=== PATIENT | male | born 1990 | race Two or more races ===

== ENCOUNTER 2020-02-27 22:22 | Inpatient (IN) | payer OTHER ==
[~2020-02-27] VITALS: Ht 175.3 cm; Wt 71.0 kg
[2020-02-27] MEDS ORDERED: INSU100I51 SC (22:39)
[2020-02-27] MEDS ORDERED: INSU100I13 SC (22:39)
--- NOTE | 2020-02-27 22:49 | NUR ---
PT TRANSFERRED FROM [place]. PT HAS CRUCH INJURY TO LEFT ARM. ARM IS SPLINTED. VSS. PT IS A TYPE 1 DIABETIC. 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 PT MEDICATED WITH 8 MG ZOFRAN AND 100 MCG FENTYNAL ASSOCIATE ENGINEER. PT RESTING. LAB AT BEDSIDE. PT GIVEN WATER UPON REQUEST. OK PER . CALL LIGHT IN REACH
[2020-02-27 23:03] LABS: BASOPHILS # (AUTO) 0.04 x10^3/uL (0-0.1); BASOPHILS % (AUTO) 0 % (0-1); EOSINOPHILS # (AUTO) 0.03 x10^3/uL (0-0.4); EOSINOPHILS % (AUTO) 0 % (1-7); LYMPHOCYTES # (AUTO) 1.07 x10^3/uL (1-3.4); LYMPHOCYTES % (AUTO) 9 % (22-44); MD NO; MEAN CORPUSCULAR HEMOGLOBIN 29.4 pg (27.5-34.5); MEAN CORPUSCULAR HGB CONC 33.4 g/dL (33.2-36.2); MONOCYTES # (AUTO) 0.52 x10^3/uL (0.2-0.8); MONOCYTES % (AUTO) 4 % (2-9); NEUTROPHILS # (AUTO) 10.05 x10^3/uL (1.8-6.8); NEUTROPHILS % (AUTO) 86 % (42-75); PLATELET COUNT 211 x10^3/uL (130-400); RED BLOOD COUNT 4.36 x10^6/uL (4.38-5.82)
[2020-02-27 23:15] LABS: ALBUMIN 3.5 g/dL (3.4-5.0); ANION GAP 14 mmol/L (5-15); CHLORIDE 103 mmol/L (98-107)
[2020-02-27] MEDS ORDERED: ONDANSETRON 2MG/ML, 2ML IVPush PRN (23:30)
[2020-02-27] MEDS ORDERED: HYDROmorphone 1 MG/ML, 1ML INJ IVPush PRN (23:30)
[2020-02-28 00:35] VITALS: BP 138/80
[2020-02-28] MEDS ORDERED: LACTATED RINGERS 1,000 ML IV SCH (01:00)
[2020-02-28] MEDS ORDERED: ACETAMINOPHEN 325 MG TABLET PO PRN ×2 (01:00→10:30)
[2020-02-28] MEDS ORDERED: DEXTROSE 50%, 50ML SYRINGE IVPush PRN (01:00)
[2020-02-28] MEDS ORDERED: GLUCAGON 1 MG IM PRN (01:00)
[2020-02-28] MEDS ORDERED: DEXTROSE 4 GM TAB.CHEW PO PRN (01:00)
[2020-02-28] MEDS ORDERED: TRAZODONE 50MG TABLET PO PRN (01:00)
[2020-02-28] MEDS ORDERED: ONDANSETRON 2MG/ML, 2ML IVPush PRN (01:00)
[2020-02-28] MEDS ORDERED: ENALAPRILAT 1.25 MG/ML, 2ML IVPush PRN (01:00)
[2020-02-28] MEDS ORDERED: INSULIN LISPRO 100 UNITS/ML, PEN SQ-INSULIN SCH (01:00)
[2020-02-28] MEDS ORDERED: morphine SULFATE 10 MG/ML, 1ML IVPush PRN (01:00)
[2020-02-28] MEDS: INSULIN GLARGINE 100 UNITS/ML, PEN SQ-INSULIN SCH ×2 (01:34→20:31)
[2020-02-28 01:55] LABS: MICROSCOPIC AUTO
[2020-02-28 02:09] LABS: CULTURE INDICATED? NO
[2020-02-28] MEDS ORDERED: INSULIN LISPRO 100 UNITS/ML, PEN SQ-INSULIN ONE (03:00)
[2020-02-28 05:11] LABS: ANION GAP 10 mmol/L (5-15); CALCIUM 9.3 mg/dL (8.5-10.1); CHLORIDE 107 mmol/L (98-107)
[2020-02-28 05:12] LABS: BASOPHILS # (AUTO) 0.04 x10^3/uL (0-0.1); BASOPHILS % (AUTO) 0 % (0-1); EOSINOPHILS % (AUTO) 0 % (1-7); LYMPHOCYTES # (AUTO) 1.21 x10^3/uL (1-3.4); LYMPHOCYTES % (AUTO) 13 % (22-44); MD NO; MEAN CORPUSCULAR HEMOGLOBIN 29.9 pg (27.5-34.5); MEAN CORPUSCULAR VOLUME 87.9 fL (81-97); MEAN PLATELET VOLUME 9.9 fL (7.4-10.4); MONOCYTES # (AUTO) 0.37 x10^3/uL (0.2-0.8); MONOCYTES % (AUTO) 4 % (2-9); NEUTROPHILS # (AUTO) 7.87 x10^3/uL (1.8-6.8); NEUTROPHILS % (AUTO) 83 % (42-75); PLATELET COUNT 218 x10^3/uL (130-400); RED BLOOD COUNT 4.25 x10^6/uL (4.38-5.82); RED CELL DISTRIBUTION WIDTH 12.6 % (9.4-14.8)
[2020-02-28 05:14] LABS: CREATININE 1.69 mg/dL (0.7-1.3)
[2020-02-28 06:04] LABS: ACETONE, SERUM Large (80mg/dL) (Negative)
[2020-02-28] MEDS: INSULIN LISPRO 100 UNITS/ML, PEN SQ-INSULIN SCH ×4 (07:49→20:31)
[2020-02-28] MEDS: SENNA/DOCUSATE TABLET PO SCH (07:49)
[2020-02-28] MEDS: SODIUM CHLORIDE FLUSH 10ML SYR IVF SCH ×2 (07:50→21:00)
[2020-02-28] MEDS: LACTATED RINGERS 1,000 ML IV SCH (07:57)
[2020-02-28 08:00] VITALS: BP 143/88
[2020-02-28] MEDS ORDERED: CHLORHEXIDINE 15 ML UDC MM STA (08:24)
[2020-02-28] MEDS ORDERED: MIDAZOLAM 1 MG/ML, 2ML ONE (09:00)
[2020-02-28] MEDS ORDERED: FENTANYL PF 250 MCG/5ML ONE (09:01)
[2020-02-28] MEDS ORDERED: SUCCINYLCHOLINE 20 MG/ML, 10ML ONE (09:24)
[2020-02-28] MEDS ORDERED: ROCURONIUM 10 MG/ML,10ML ONE (09:24)
[2020-02-28] MEDS ORDERED: PROMETHAZINE 25 MG/ML, 1ML IV PRN (10:30)
[2020-02-28] MEDS ORDERED: METOPROLOL 1 MG/ML, 5ML IV PRN (10:30)
[2020-02-28] MEDS ORDERED: MEPERIDINE/PF 25MG/ML,1ML IVPush PRN (10:30)
[2020-02-28] MEDS ORDERED: HYDROmorphone 2 MG/ML, 1ML IVPush PRN (10:30)
[2020-02-28] MEDS ORDERED: MIDAZOLAM 1 MG/ML, 2ML IV PRN (10:30)
[2020-02-28] MEDS ORDERED: OXYcodone 5 MG/5 ML ORAL.SOL UDC PO PRN (10:30)
[2020-02-28] MEDS ORDERED: ONDANSETRON 2MG/ML, 2ML ONE (11:35)
[2020-02-28] MEDS ORDERED: CEFAZOLIN 1,000 MG ONE (11:35)
[2020-02-28] MEDS ORDERED: PROPOFOL 10 MG/ML, 20ML ONE (11:35)
[2020-02-28] MEDS ORDERED: DEXAMETHASONE 4 MG/ML, 1ML ONE (11:35)
[2020-02-28 12:00] VITALS: BP 151/94
[2020-02-28] MEDS ORDERED: MEPERIDINE/PF 25MG/ML,1ML ONE (12:01)
[2020-02-28] MEDS ORDERED: FENTANYL PF 100 MCG/2ML ONE ×2 (12:11→12:36)
[2020-02-28] MEDS ORDERED: OXYcodone 5 MG/5 ML ORAL.SOL UDC ONE (12:11)
[2020-02-28] MEDS: FENTANYL PF 100 MCG/2ML IV PRN ×3 (12:13→12:37)
[2020-02-28] MEDS: HYDROcodone/APAP 5/325 TABLET PO PRN (16:23)
[2020-02-28 19:31] VITALS: BP 142/83
[2020-02-29 03:26] VITALS: BP 130/74
[2020-02-29] MEDS: HYDROcodone/APAP 5/325 TABLET PO PRN ×5 (03:32→21:10)
[2020-02-29] MEDS: LACTATED RINGERS 1,000 ML IV SCH ×5 (05:00→21:11)
[2020-02-29 05:18] LABS: BASOPHILS # (AUTO) 0.13 x10^3/uL (0-0.1); BASOPHILS % (AUTO) 1 % (0-1); EOSINOPHILS # (AUTO) 0.22 x10^3/uL (0-0.4); EOSINOPHILS % (AUTO) 2 % (1-7); LYMPHOCYTES # (AUTO) 2.74 x10^3/uL (1-3.4); LYMPHOCYTES % (AUTO) 27 % (22-44); MD NO; MEAN CORPUSCULAR HEMOGLOBIN 29.4 pg (27.5-34.5); MEAN CORPUSCULAR HGB CONC 33.8 g/dL (33.2-36.2); MEAN PLATELET VOLUME 9.6 fL (7.4-10.4); MONOCYTES # (AUTO) 0.79 x10^3/uL (0.2-0.8); MONOCYTES % (AUTO) 8 % (2-9); NEUTROPHILS # (AUTO) 6.33 x10^3/uL (1.8-6.8); NEUTROPHILS % (AUTO) 62 % (42-75); PLATELET COUNT 192 x10^3/uL (130-400); RED BLOOD COUNT 3.97 x10^6/uL (4.38-5.82); RED CELL DISTRIBUTION WIDTH 12.6 % (9.4-14.8)
[2020-02-29 05:36] LABS: ALBUMIN 2.7 g/dL (3.4-5.0); ANION GAP 7 mmol/L (5-15); CALCIUM 8.4 mg/dL (8.5-10.1); CHLORIDE 106 mmol/L (98-107)
[2020-02-29 05:40] LABS: ALANINE AMINOTRANSFERASE 19 U/L (12-78); ALKALINE PHOSPHATASE 91 U/L (45-117); BILIRUBIN,TOTAL 0.6 mg/dL (0.2-1.0); CREATINE KINASE, TOTAL 954 U/L (39-308); CREATININE 1.28 mg/dL (0.7-1.3)
[2020-02-29 06:50] VITALS: BP 148/92
[2020-02-29] MEDS: INSULIN LISPRO 100 UNITS/ML, PEN SQ-INSULIN SCH ×4 (07:00→21:39)
[2020-02-29] MEDS ORDERED: DEXTROSE 50%, 50ML SYRINGE IVPush PRN (07:30)
[2020-02-29] MEDS ORDERED: GLUCAGON 1 MG IM PRN (07:30)
[2020-02-29] MEDS ORDERED: DEXTROSE 4 GM TAB.CHEW PO PRN (07:30)
[2020-02-29] MEDS: SENNA/DOCUSATE TABLET PO SCH (07:45)
[2020-02-29] MEDS: SODIUM CHLORIDE FLUSH 10ML SYR IVF SCH ×4 (09:00→21:11)
[2020-02-29 13:50] VITALS: BP 146/92
[2020-02-29 17:20] LABS: MICROSCOPIC AUTO
[2020-02-29 17:29] LABS: AMPHETAMINE SCREEN, URINE Negative (Negative); BARBITURATE SCREEN, URINE Negative (Negative); BENZODIAZEPINE SCREEN, URINE Negative (Negative); CANNABINOID SCREEN, URINE Negative (Negative); COCAINE SCREEN, URINE Negative (Negative); METHADONE SCREEN, URINE Negative (Negative); OPIATE SCREEN, URINE Positive (Negative)
[2020-02-29 19:41] VITALS: BP 153/91
[2020-02-29] MEDS: INSULIN GLARGINE 100 UNITS/ML, PEN SQ-INSULIN SCH (21:40)
[2020-03-01] MEDS: LACTATED RINGERS 1,000 ML IV SCH ×5 (01:54→17:21)
[2020-03-01 02:05] VITALS: BP 144/92
[2020-03-01] MEDS: HYDROcodone/APAP 5/325 TABLET PO PRN ×5 (02:12→21:31)
[2020-03-01 05:41] LABS: ANION GAP 5 mmol/L (5-15); CALCIUM 8.4 mg/dL (8.5-10.1); CHLORIDE 106 mmol/L (98-107)
[2020-03-01 05:45] LABS: CREATINE KINASE, TOTAL 639 U/L (39-308); CREATININE 1.01 mg/dL (0.7-1.3)
[2020-03-01] MEDS: INSULIN LISPRO 100 UNITS/ML, PEN SQ-INSULIN SCH ×4 (07:00→21:42)
[2020-03-01 08:15] VITALS: BP 157/96
[2020-03-01] MEDS: SODIUM CHLORIDE FLUSH 10ML SYR IVF SCH ×2 (09:28→21:31)
[2020-03-01] MEDS: SENNA/DOCUSATE TABLET PO SCH (09:29)
[2020-03-01 13:26] VITALS: BP 154/87
[2020-03-01 21:26] VITALS: BP 156/91
[2020-03-01] MEDS: INSULIN GLARGINE 100 UNITS/ML, PEN SQ-INSULIN SCH (21:42)
[2020-03-02] MEDS: HYDROcodone/APAP 5/325 TABLET PO PRN ×5 (01:43→21:45)
[2020-03-02] MEDS: LACTATED RINGERS 1,000 ML IV SCH ×5 (01:44→21:59)
[2020-03-02 01:46] VITALS: BP 148/89
[2020-03-02 05:53] LABS: BASOPHILS # (AUTO) 0.04 x10^3/uL (0-0.1); BASOPHILS % (AUTO) 1 % (0-1); EOSINOPHILS # (AUTO) 0.28 x10^3/uL (0-0.4); EOSINOPHILS % (AUTO) 5 % (1-7); LYMPHOCYTES # (AUTO) 1.84 x10^3/uL (1-3.4); LYMPHOCYTES % (AUTO) 34 % (22-44); MD NO; MEAN CORPUSCULAR HEMOGLOBIN 29.3 pg (27.5-34.5); MEAN CORPUSCULAR HGB CONC 33.7 g/dL (33.2-36.2); MEAN PLATELET VOLUME 9.3 fL (7.4-10.4); MONOCYTES # (AUTO) 0.39 x10^3/uL (0.2-0.8); MONOCYTES % (AUTO) 7 % (2-9); NEUTROPHILS # (AUTO) 2.91 x10^3/uL (1.8-6.8); NEUTROPHILS % (AUTO) 53 % (42-75); PLATELET COUNT 203 x10^3/uL (130-400); RED BLOOD COUNT 4.18 x10^6/uL (4.38-5.82); RED CELL DISTRIBUTION WIDTH 12.8 % (9.4-14.8)
[2020-03-02 06:03] LABS: ANION GAP 5 mmol/L (5-15); CHLORIDE 105 mmol/L (98-107)
[2020-03-02 06:07] LABS: CREATINE KINASE, TOTAL 562 U/L (39-308); CREATININE 0.94 mg/dL (0.7-1.3)
[2020-03-02] MEDS: INSULIN LISPRO 100 UNITS/ML, PEN SQ-INSULIN SCH ×4 (07:00→21:59)
[2020-03-02 07:53] VITALS: BP 157/92
[2020-03-02] MEDS: SENNA/DOCUSATE TABLET PO SCH (08:48)
[2020-03-02] MEDS: SODIUM CHLORIDE FLUSH 10ML SYR IVF SCH ×2 (08:49→21:44)
[2020-03-02 14:00] VITALS: BP 137/83
[2020-03-02 21:40] VITALS: BP 154/92
[2020-03-02] MEDS: INSULIN GLARGINE 100 UNITS/ML, PEN SQ-INSULIN SCH (21:59)
[2020-03-03 01:40] VITALS: BP 142/87
[2020-03-03] MEDS: HYDROcodone/APAP 5/325 TABLET PO PRN ×4 (02:02→14:37)
[2020-03-03] MEDS: LACTATED RINGERS 1,000 ML IV SCH ×3 (03:12→13:00)
[2020-03-03 05:34] LABS: ANION GAP 6 mmol/L (5-15); CALCIUM 8.8 mg/dL (8.5-10.1); CHLORIDE 105 mmol/L (98-107)
[2020-03-03 05:38] LABS: CREATINE KINASE, TOTAL 568 U/L (39-308); CREATININE 0.94 mg/dL (0.7-1.3)
[2020-03-03] MEDS: INSULIN LISPRO 100 UNITS/ML, PEN SQ-INSULIN SCH ×2 (06:40→12:08)
[2020-03-03 07:48] VITALS: BP 161/94
[2020-03-03] MEDS: SODIUM CHLORIDE FLUSH 10ML SYR IVF SCH (07:55)
[2020-03-03] MEDS: SENNA/DOCUSATE TABLET PO SCH (09:31)
[2020-03-03] MEDS ORDERED: INSU100I13 SC (11:10)
[2020-03-03] MEDS ORDERED: INSU100I51 SC (11:10)
[2020-03-03] MEDS ORDERED: HYDR-3652 PO (12:21)
[2020-03-03 14:19] VITALS: BP 137/88
== END 2020-03-03 15:03 | disposition home or self-care (01) | DRG 906 ==
LOC: ED 22:44 → EDIP 23:30 → 4NE 02-28 00:23
PROVIDERS: ADMIT Family Medicine; ATTEND Family Medicine
PROC: 0PSV04Z Reposition Left Finger Phalanx with Internal Fixation Device, Open Approach (ICD-10-PCS; 2020-02-28)
PROC: 0PSQ34Z Reposition Left Metacarpal with Internal Fixation Device, Percutaneous Approach (ICD-10-PCS; 2020-02-28)
PROC: 0PSQ04Z Reposition Left Metacarpal with Internal Fixation Device, Open Approach (ICD-10-PCS; principal; 2020-02-28 09:00)
DX: S67.22XA Crushing injury of left hand, initial encounter (principal); M62.82 Rhabdomyolysis; N17.9 Acute kidney failure, unspecified; S62.328A Displaced fracture of shaft of other metacarpal bone, initial encounter for closed fracture; S62.601A Fracture of unspecified phalanx of left index finger, initial encounter for closed fracture; W20.8XXA Other cause of strike by thrown, projected or falling object, initial encounter; N18.2 Chronic kidney disease, stage 2 (mild); E10.22 Type 1 diabetes mellitus with diabetic chronic kidney disease; E10.649 Type 1 diabetes mellitus with hypoglycemia without coma; E10.65 Type 1 diabetes mellitus with hyperglycemia; I12.9 Hypertensive chronic kidney disease with stage 1 through stage 4 chronic kidney disease, or unspecified chronic kidney disease; W18.39XA Other fall on same level, initial encounter; Y93.89 Activity, other specified; Y92.89 Other specified places as the place of occurrence of the external cause; Y99.8 Other external cause status
CPT/HCPCS: 36415; 76000; 80048; 80053; 80307; 81001; 82010; 82040; 82550; 82800; 82947; 82962; 83036; 83874; 85025; C1713; G0378; J0690; J1100; J2250; J2405; J2704; J3010; J0330; J1815; J2175; J2270; J7120